=== PATIENT | female | born 1955 | race African-American/Black ===

== ENCOUNTER 2016-06-01 07:17 | Inpatient (IN) | payer OTHER ==
[~2016-06-01] VITALS: Ht 147.3 cm; Wt 184.0 kg
[~2016-06-01 07:17] MED LIST: CALCIUM CA1250 MG/5 PO; DUONEB 2.5-0.5 M3 ML AEROSOL; FUROSEMIDE20 MG PO; GLUCOPHAGE500 MG PO; HYDROCHLOROTHIA50 MG PO; K-DUR20 MEQ PO; LASIX10 MG PO; OMEPRAZOLE40 MG PO; PREDNISONE10 MG PO; PREDNISONE5 MG PO; SPIRIVA1 INHALATI IH; THEOCAP200 MG PO; THEOCHRON200 MG PO; TRANSDERM-SCO1 PATCH TD; VERAPAMIL HCL120 MG PO; VERAPAMIL HCL180 MG PO
[2016-06-01 08:51] LABS: HEMATOCRIT 50.5 % (36.0-46.0); MCH 27.7 PG (29.0-34.0); MCHC 29.3 G/DL (30.0-36.0); MCV 94.6 FL (83-99); RBC DIS.WIDTH-CV 16.3 % (11.8-14.6); RBC DIS.WIDTH-SD 53.5 % (39-53); RED BLOOD COUNT 5.34 M/uL (3.80-5.20); WHITE BLOOD COUNT 17.4 K/uL (4.1-10.2)
[2016-06-01 08:54] LABS: BASE EXCESS -5.6 mEq/L (-3 to +3); BICARBONATE 22.9 mEq/L (22-26); CARBOXY HGB 2.5 % (0-5); METHEMOGLOBIN 1.1 % (0-1.5); PO2 181 mm Hg (80-100)
[2016-06-01 08:55] LABS: COMMENTS - BLOOD GASES A+C+; DEVICE VENT; FI02 100 %; MECHANICAL RATE 20 resp/min; MODE AC/VC; PCO2 56 mm Hg (35-45); PEEP 8 CM/H20; SITE RR; TIDAL VOLUME 470 ML; TOTAL RESP RATE 20 resp/min; pH 7.22 (7.35-7.45)
[2016-06-01 08:58] LABS: CHLORIDE 101 mEq/L (99-109); SODIUM 143 mEq/L (136-147)
[2016-06-01 08:59] LABS: GLUCOSE 58 mg/dL (70-99)
[2016-06-01 09:01] LABS: ANION GAP 23 MEQ/L (2-14)
[2016-06-01 09:03] LABS: GFR ESTIMATE (CALCULATED) 17 mL/min/
[2016-06-01 09:04] LABS: UREA NITROGEN (BUN) 49 mg/dL (9-23)
[2016-06-01 09:05] LABS: TROP-I INTERPRETATION POSITIVE
[2016-06-01 09:06] LABS: TROPONIN-I 0.88 ng/mL (0.0-0.30)
[2016-06-01 10:06] LABS: PLATELET COUNT UNABLE TO REPORT K/uL (156-360)
[2016-06-01 11:31] VITALS: BP 95/51
[2016-06-01 13:00] VITALS: BP 77/39
[2016-06-01] MEDS ORDERED: THEOPHYLLINE400 MG PO (13:32)
[2016-06-01] MEDS ORDERED: VERAPAMIL HCL180 MG PO (13:33)
[2016-06-01] MEDS ORDERED: LASIX20 MG PO (13:33)
[2016-06-01 14:00] VITALS: BP 72/26
[2016-06-01 14:30] VITALS: BP 77/33
[2016-06-01 15:00] VITALS: BP 80/38
[2016-06-01 15:19] LABS: BASE EXCESS -1.5 mEq/L (-3 to +3); BICARBONATE 24.3 mEq/L (22-26); CARBOXY HGB 3.4 % (0-5); DEVICE 840; FI02 100 %; MECHANICAL RATE 20 resp/min; METHEMOGLOBIN 1.1 % (0-1.5); MODE AC; PCO2 44 mm Hg (35-45); PEEP 8 CM/H20; PO2 72 mm Hg (80-100); SITE ALINE; TIDAL VOLUME 470 ML; TOTAL RESP RATE 20 resp/min; pH 7.35 (7.35-7.45)
[2016-06-01 17:58] LABS: ANION GAP 16 MEQ/L (2-14); CHLORIDE 99 MEQ/L (99-109); SAMPLE HEMOLYSIS CHECK 0; SAMPLE ICTERIC CHECK 1; SAMPLE LIPEMIA CHECK 0; SODIUM 138 MEQ/L (136-147)
[2016-06-01 18:00] LABS: METH RESISTANT S AUREUS PCR POSITIVE (NEGATIVE)
[2016-06-01 18:01] LABS: PROBE CHECK PASS
[2016-06-01 18:03] LABS: GFR ESTIMATE (CALCULATED) 17 mL/min/; GLUCOSE 78 mg/dL (70-99); UREA NITROGEN (BUN) 53 mg/dL (9-23)
[2016-06-01 18:06] LABS: TROP-I INTERPRETATION POSITIVE
[2016-06-01 18:10] LABS: TROPONIN-I 1.35 ng/mL (0.0-0.30)
[2016-06-01 19:06] LABS: HEMATOCRIT 46.8 % (36.0-46.0); MCV 91.6 FL (83-99)
[2016-06-01 19:38] VITALS: BP 95/51
[2016-06-01 23:12] LABS: TROP-I INTERPRETATION POSITIVE
[2016-06-01 23:17] LABS: TROPONIN-I 1.65 ng/mL (0.0-0.30)
[2016-06-01 23:25] LABS: INFLUENZA A VIRAL ANTIGEN NEGATIVE; INFLUENZA B VIRAL ANTIGEN NEGATIVE
[2016-06-02] VITALS: BP 148/51
[2016-06-02 05:16] LABS: CHLORIDE 104 mEq/L (99-109)
[2016-06-02 05:17] LABS: POTASSIUM 5.6 mEq/L (3.7-5.4); SODIUM 144 mEq/L (136-147)
[2016-06-02 05:20] LABS: ANION GAP 19 MEQ/L (2-14)
[2016-06-02 05:22] LABS: GFR ESTIMATE (CALCULATED) 14 mL/min/
[2016-06-02 05:23] LABS: UREA NITROGEN (BUN) 61 mg/dL (9-23)
[2016-06-02 05:24] LABS: TROP-I INTERPRETATION POSITIVE
[2016-06-02 05:25] LABS: BASE EXCESS -2.7 mEq/L (-3 to +3); BICARBONATE 23.7 mEq/L (22-26); CARBOXY HGB 2.2 % (0-5); METHEMOGLOBIN 1.6 % (0-1.5); PCO2 46 mm Hg (35-45); PO2 82 mm Hg (80-100); pH 7.32 (7.35-7.45)
[2016-06-02 05:26] LABS: COMMENTS - BLOOD GASES C+; DEVICE PB840; FI02 60 %; MECHANICAL RATE 20 resp/min; MODE AC; SITE A-LINE
[2016-06-02 05:27] LABS: PEEP 10 CM/H20; TIDAL VOLUME 470 ML
[2016-06-02 05:30] LABS: GLUCOSE 111 mg/dL (70-99)
[2016-06-02 05:32] LABS: TROPONIN-I 2.24 ng/mL (0.0-0.30)
[2016-06-02 06:12] LABS: EOSINOPHIL (%) 0 % (0-5); HEMATOCRIT 46.6 % (36.0-46.0); IMMATURE GRANULOCYTE (%) 0.3 % (0.0-0.7); IMMATURE GRANULOCYTE COUNT 0.5 K/uL; MCH 27.8 PG (29.0-34.0); MCHC 30.9 G/DL (30.0-36.0); MONOCYTE COUNT 1.1 K/uL (0-0.8); NEUTROPHIL (%) 86.4 % (45-76); NEUTROPHIL COUNT 14.1 K/uL (1.8-6.4); PLAT.SUFFICIENCY DECREASED; RBC DIS.WIDTH-CV 16.1 % (11.8-14.6); RBC DIS.WIDTH-SD 52.1 % (39-53); RED BLOOD COUNT 5.18 M/uL (3.80-5.20); USER ID SLU; WHITE BLOOD COUNT 16.3 K/uL (4.1-10.2)
[2016-06-02 06:13] LABS: PLATELET COUNT 94 K/uL (156-360)
[2016-06-02 11:04] LABS: D-DIMER LATEX POSITIVE
[2016-06-02 11:06] LABS: FIBRINOGEN 174 MG/DL (160-450)
[2016-06-02 11:07] LABS: INTER. NORMALIZED RATIO 3.5; PTT 31.7 (25-32)
[2016-06-02 12:15] LABS: SCHISTOCYTES NONE SEEN
[2016-06-02 13:28] LABS: ANION GAP 16 MEQ/L (2-14); CHLORIDE 101 MEQ/L (99-109); GFR ESTIMATE (CALCULATED) 14 mL/min/; GLUCOSE 151 mg/dL (70-99); SAMPLE HEMOLYSIS CHECK 2; SAMPLE ICTERIC CHECK 1; SAMPLE LIPEMIA CHECK 0; SODIUM 140 MEQ/L (136-147); UREA NITROGEN (BUN) 70 mg/dL (9-23)
[2016-06-02 13:36] LABS: POTASSIUM 5.7 MEQ/L (3.7-5.4)
[2016-06-02 15:44] LABS: DIRECT BILIRUBIN 2.7 mg/dL (0.0-0.3); MAGNESIUM 2.2 mg/dl (1.3-2.7); TOTAL BILIRUBIN 5.1 MG/DL (0.0-1.0)
[2016-06-02 16:15] LABS: ALKALINE PHOSPHATASE 118 IU/L (3-129)
[2016-06-02 17:23] LABS: ADD MIUA? YES; BILIRUBIN NEGATIVE; BLOOD LARGE; COLOR YELLOW ((YELLOW)); GLUCOSE (STRIP) NEGATIVE; KETONES NEGATIVE; LEUKOCYTES TRACE; NITRITE NEGATIVE; PROTEIN (STRIP) 30; SPECIFIC GRAVITY 1.008 (1.000-1.030); UROBILINOGEN 0.2 MG/DL (0.2-1.0)
[2016-06-02 17:48] LABS: UR CREATININE CONCENTRATION 47.6 MG/DL
[2016-06-02 18:02] LABS: EPITHELIAL CELLS RARE /HPF; MUCUS TRACE /LPF; WHITE BLOOD CELLS 15-20 /HPF (0-5)
[2016-06-02 18:14] LABS: BACTERIA RARE /HPF; CRYSTALS PRESENT
[2016-06-02 20:00] VITALS: BP 147/57
[2016-06-03 06:36] LABS: EOSINOPHIL (%) 0 % (0-5); IMMATURE GRANULOCYTE (%) 0.2 % (0.0-0.7); LYMPHOCYTE COUNT 0.6 K/uL (1.0-2.8); MONOCYTE (%) 3.3 % (3-12); MONOCYTE COUNT 0.5 K/uL (0-0.8); NEUTROPHIL (%) 92.7 % (45-76); NRBC (%) 0.4 /100 WBC (0-0)
[2016-06-03 07:06] LABS: ANION GAP 14 MEQ/L (2-14); CHLORIDE 100 MEQ/L (99-109); GFR ESTIMATE (CALCULATED) 11 mL/min/; GLUCOSE 193 mg/dL (70-99); POTASSIUM 4.8 MEQ/L (3.7-5.4); SAMPLE HEMOLYSIS CHECK 0; SAMPLE ICTERIC CHECK 1; SAMPLE LIPEMIA CHECK 0; SODIUM 138 MEQ/L (136-147); UREA NITROGEN (BUN) 81 mg/dL (9-23)
[2016-06-03 07:10] LABS: HEMATOCRIT 41.8 % (36.0-46.0); MCH 28.2 PG (29.0-34.0); MCHC 31.8 G/DL (30.0-36.0); MCV 88.6 FL (83-99); PLAT.SUFFICIENCY DECREASED; PLATELET COUNT 89 K/uL (156-360); RBC DIS.WIDTH-CV 15.8 % (11.8-14.6); RBC DIS.WIDTH-SD 50.6 % (39-53); RED BLOOD COUNT 4.72 M/uL (3.80-5.20); WHITE BLOOD COUNT 15.1 K/uL (4.1-10.2)
[2016-06-03 08:30] LABS: ALKALINE PHOSPHATASE 110 IU/L (3-129); DIRECT BILIRUBIN 3.9 mg/dL (0.0-0.3); TOTAL BILIRUBIN 5.3 MG/DL (0.0-1.0)
[2016-06-03 09:34] LABS: INTER. NORMALIZED RATIO 2.4
[2016-06-03 09:45] LABS: PROTHROMBIN TIME 24.8 (9.2-11.2)
[2016-06-03 18:11] LABS: POINT-OF-CARE METER ID UU13113748
[2016-06-03 18:26] LABS: EOSINOPHIL (%) 0 % (0-5); IMMATURE GRANULOCYTE (%) 0.2 % (0.0-0.7); LYMPHOCYTE COUNT 0.5 K/uL (1.0-2.8); MONOCYTE (%) 3.3 % (3-12); MONOCYTE COUNT 0.5 K/uL (0-0.8); NEUTROPHIL (%) 92.9 % (45-76); NEUTROPHIL COUNT 13.4 K/uL (1.8-6.4); NRBC (%) 0.4 /100 WBC (0-0)
[2016-06-03 18:50] LABS: ANION GAP 14 MEQ/L (2-14); CHLORIDE 102 MEQ/L (99-109); GFR ESTIMATE (CALCULATED) 11 mL/min/; GLUCOSE 223 mg/dL (70-99); MAGNESIUM 2.1 mg/dl (1.3-2.7); POTASSIUM 4.8 MEQ/L (3.7-5.4); SAMPLE HEMOLYSIS CHECK 0; SAMPLE ICTERIC CHECK 1; SAMPLE LIPEMIA CHECK 0; SODIUM 139 MEQ/L (136-147); UREA NITROGEN (BUN) 93 mg/dL (9-23)
[2016-06-03 19:09] LABS: HEMATOCRIT 37.2 % (36.0-46.0); MCH 28.1 PG (29.0-34.0); MCV 87.9 FL (83-99); PLAT.SUFFICIENCY DECREASED; PLATELET COUNT 65 K/uL (156-360); RBC DIS.WIDTH-CV 15.7 % (11.8-14.6); RBC DIS.WIDTH-SD 50.1 % (39-53); RED BLOOD COUNT 4.23 M/uL (3.80-5.20); USER ID WCD; WHITE BLOOD COUNT 14.4 K/uL (4.1-10.2)
[2016-06-04 01:14] LABS: EOSINOPHIL (%) 0 % (0-5); IMMATURE GRANULOCYTE (%) 0.3 % (0.0-0.7); IMMATURE GRANULOCYTE COUNT 0.4 K/uL; LYMPHOCYTE COUNT 0.4 K/uL (1.0-2.8); MONOCYTE (%) 3.3 % (3-12); MONOCYTE COUNT 0.5 K/uL (0-0.8); NEUTROPHIL (%) 93.7 % (45-76); NEUTROPHIL COUNT 14.1 K/uL (1.8-6.4)
[2016-06-04 01:23] LABS: CHLORIDE 102 mEq/L (99-109); SODIUM 138 mEq/L (136-147)
[2016-06-04 01:25] LABS: GLUCOSE 219 mg/dL (70-99)
[2016-06-04 01:26] LABS: ANION GAP 16 MEQ/L (2-14)
[2016-06-04 01:28] LABS: PROTHROMBIN TIME 20.6 (9.2-11.2); PTT 33.8 (25-32)
[2016-06-04 01:29] LABS: GFR ESTIMATE (CALCULATED) 10 mL/min/
[2016-06-04 01:30] LABS: UREA NITROGEN (BUN) 97 mg/dL (9-23)
[2016-06-04 02:07] LABS: HEMATOCRIT 36.5 % (36.0-46.0); MCH 27.6 PG (29.0-34.0); MCHC 31.8 G/DL (30.0-36.0); MCV 86.7 FL (83-99); RBC DIS.WIDTH-CV 15.7 % (11.8-14.6); RED BLOOD COUNT 4.21 M/uL (3.80-5.20); WHITE BLOOD COUNT 15.1 K/uL (4.1-10.2)
[2016-06-04 02:11] LABS: HEMATOLOGY COMMENT 1 REV; PLAT.SUFFICIENCY DECREASED
[2016-06-04 02:12] LABS: PLATELET COUNT 77 K/uL (156-360)
[2016-06-04 05:15] LABS: POINT-OF-CARE METER ID UU13113748
[2016-06-04 05:16] LABS: BICARBONATE 22.7 mEq/L (22-26); METHEMOGLOBIN 1.4 % (0-1.5); PCO2 42 mm Hg (35-45); pH 7.34 (7.35-7.45)
[2016-06-04 05:18] LABS: COMMENTS - BLOOD GASES C+; DEVICE PB840; FI02 50 %; MECHANICAL RATE 20 resp/min; MODE AC; PO2 99 mm Hg (80-100); SITE A-LINE
[2016-06-04 05:19] LABS: PEEP 10 CM/H20; TIDAL VOLUME 470 ML; TOTAL RESP RATE 20 resp/min
[2016-06-04 05:57] LABS: EOSINOPHIL (%) 0 % (0-5); IMMATURE GRANULOCYTE (%) 0.3 % (0.0-0.7); IMMATURE GRANULOCYTE COUNT 0.1 K/uL; LYMPHOCYTE COUNT 0.3 K/uL (1.0-2.8); MONOCYTE (%) 2.9 % (3-12); MONOCYTE COUNT 0.4 K/uL (0-0.8); NEUTROPHIL (%) 94.5 % (45-76); NEUTROPHIL COUNT 13.5 K/uL (1.8-6.4); NRBC (%) 0.4 /100 WBC (0-0)
[2016-06-04 06:35] LABS: ANION GAP 17 MEQ/L (2-14); CHLORIDE 99 MEQ/L (99-109); GFR ESTIMATE (CALCULATED) 10 mL/min/; GLUCOSE 221 mg/dL (70-99); MAGNESIUM 2.1 mg/dl (1.3-2.7); POTASSIUM 4.7 MEQ/L (3.7-5.4); SAMPLE HEMOLYSIS CHECK 0; SAMPLE ICTERIC CHECK 1; SAMPLE LIPEMIA CHECK 0; SODIUM 139 MEQ/L (136-147); UREA NITROGEN (BUN) 96 mg/dL (9-23)
[2016-06-04 06:39] LABS: PROTHROMBIN TIME 20.6 (9.2-11.2)
[2016-06-04 06:42] LABS: HEMATOCRIT 35.8 % (36.0-46.0); MCH 28.5 PG (29.0-34.0); MCHC 32.7 G/DL (30.0-36.0); MCV 87.1 FL (83-99); RBC DIS.WIDTH-CV 15.6 % (11.8-14.6); RBC DIS.WIDTH-SD 48.9 % (39-53); RED BLOOD COUNT 4.11 M/uL (3.80-5.20); WHITE BLOOD COUNT 14.3 K/uL (4.1-10.2)
[2016-06-04 07:06] LABS: PLAT.SUFFICIENCY DECREASED; PLATELET COUNT 60 K/uL (156-360); USER ID STC
[2016-06-04 12:24] LABS: POINT-OF-CARE METER ID UU13113748
[2016-06-04 13:22] LABS: NRBC (%) 0.5 /100 WBC (0-0)
[2016-06-04 13:49] LABS: ANION GAP 14 MEQ/L (2-14); CHLORIDE 101 MEQ/L (99-109); GFR ESTIMATE (CALCULATED) 12 mL/min/; GLUCOSE 185 mg/dL (70-99); MAGNESIUM 2.1 mg/dl (1.3-2.7); POTASSIUM 4.8 MEQ/L (3.7-5.4); SAMPLE HEMOLYSIS CHECK 0; SAMPLE ICTERIC CHECK 1; SAMPLE LIPEMIA CHECK 0; SODIUM 138 MEQ/L (136-147); UREA NITROGEN (BUN) 85 mg/dL (9-23)
[2016-06-04 14:13] LABS: EOSINOPHIL (%) 0 % (0-5); HEMATOCRIT 35.9 % (36.0-46.0); IMMATURE GRANULOCYTE (%) 0.3 % (0.0-0.7); IMMATURE GRANULOCYTE COUNT 0.1 K/uL; LYMPHOCYTE COUNT 0.4 K/uL (1.0-2.8); MCH 27.5 PG (29.0-34.0); MCHC 31.8 G/DL (30.0-36.0); MCV 86.5 FL (83-99); MONOCYTE (%) 1.6 % (3-12); MONOCYTE COUNT 0.2 K/uL (0-0.8); NEUTROPHIL (%) 95.4 % (45-76); NEUTROPHIL COUNT 13.9 K/uL (1.8-6.4); RBC DIS.WIDTH-CV 15.8 % (11.8-14.6); RBC DIS.WIDTH-SD 49.4 % (39-53); RED BLOOD COUNT 4.15 M/uL (3.80-5.20); WHITE BLOOD COUNT 14.6 K/uL (4.1-10.2)
[2016-06-04 14:18] LABS: PLAT.SUFFICIENCY DECREASED; PLATELET COUNT 64 K/uL (156-360); USER ID STC
[2016-06-04 17:23] LABS: POINT-OF-CARE METER ID UU13113748
[2016-06-04 18:39] LABS: ANION GAP 10 MEQ/L (2-14); CHLORIDE 101 MEQ/L (99-109); GFR ESTIMATE (CALCULATED) 14 mL/min/; GLUCOSE 235 mg/dL (70-99); POTASSIUM 4.8 MEQ/L (3.7-5.4); SAMPLE HEMOLYSIS CHECK 0; SAMPLE ICTERIC CHECK 1; SAMPLE LIPEMIA CHECK 0; SODIUM 136 MEQ/L (136-147); UREA NITROGEN (BUN) 74 mg/dL (9-23)
[2016-06-05 00:29] LABS: POINT-OF-CARE METER ID UU13113748
[2016-06-05 01:22] LABS: CHLORIDE 103 mEq/L (99-109); POTASSIUM 4.9 mEq/L (3.7-5.4); SODIUM 138 mEq/L (136-147)
[2016-06-05 01:25] LABS: GLUCOSE 205 mg/dL (70-99)
[2016-06-05 01:26] LABS: ANION GAP 13 MEQ/L (2-14)
[2016-06-05 01:28] LABS: GFR ESTIMATE (CALCULATED) 16 mL/min/
[2016-06-05 01:29] LABS: UREA NITROGEN (BUN) 61 mg/dL (9-23)
[2016-06-05 02:10] LABS: HEMATOLOGY COMMENT 1 REV; PLAT.SUFFICIENCY DECREASED; USER ID SLU
[2016-06-05 02:12] LABS: EOSINOPHIL (%) 0 % (0-5); IMMATURE GRANULOCYTE (%) 0.4 % (0.0-0.7); IMMATURE GRANULOCYTE COUNT 0.6 K/uL; LYMPHOCYTE COUNT 0.3 K/uL (1.0-2.8); MONOCYTE COUNT 0.7 K/uL (0-0.8); NEUTROPHIL (%) 93.6 % (45-76); NEUTROPHIL COUNT 15.3 K/uL (1.8-6.4)
[2016-06-05 02:13] LABS: RED BLOOD COUNT 4.27 M/uL (3.80-5.20); WHITE BLOOD COUNT 15.6 K/uL (4.1-10.2)
[2016-06-05 02:14] LABS: HEMATOCRIT 36.6 % (36.0-46.0); MCH 28.3 PG (29.0-34.0); MCHC 32.1 G/DL (30.0-36.0); MCV 85.7 FL (83-99); PLATELET COUNT 68 K/uL (156-360); RBC DIS.WIDTH-CV 15.6 % (11.8-14.6); RBC DIS.WIDTH-SD 46.8 % (39-53)
[2016-06-05 06:20] LABS: ANION GAP 14 MEQ/L (2-14); CHLORIDE 100 MEQ/L (99-109); GFR ESTIMATE (CALCULATED) 21 mL/min/; GLUCOSE 201 mg/dL (70-99); POTASSIUM 4.8 MEQ/L (3.7-5.4); SAMPLE HEMOLYSIS CHECK 0; SAMPLE ICTERIC CHECK 2; SAMPLE LIPEMIA CHECK 0; SODIUM 135 MEQ/L (136-147); UREA NITROGEN (BUN) 50 mg/dL (9-23)
[2016-06-05 07:50] LABS: EOSINOPHIL (%) 0 % (0-5); IMMATURE GRANULOCYTE (%) 0.7 % (0.0-0.7); IMMATURE GRANULOCYTE COUNT 0.1 K/uL; LYMPHOCYTE COUNT 0.5 K/uL (1.0-2.8); MONOCYTE (%) 2.3 % (3-12); MONOCYTE COUNT 0.4 K/uL (0-0.8); NEUTROPHIL COUNT 14.7 K/uL (1.8-6.4); NRBC (%) 1.1 /100 WBC (0-0)
[2016-06-05 08:10] LABS: MAGNESIUM 2.2 mg/dl (1.3-2.7)
[2016-06-05 08:21] LABS: BASE EXCESS -2.6 mEq/L (-3 to +3); BICARBONATE 23.2 mEq/L (22-26); CARBOXY HGB 2.3 % (0-5); METHEMOGLOBIN 1.7 % (0-1.5); PCO2 43 mm Hg (35-45); PO2 204 mm Hg (80-100); pH 7.34 (7.35-7.45)
[2016-06-05 08:22] LABS: COMMENTS - BLOOD GASES C+; DEVICE VENT; FI02 100 %; MECHANICAL RATE 20 resp/min; MODE AC; PEEP 8 CM/H20; SITE ALINE; TIDAL VOLUME 470 ML; TOTAL RESP RATE 20 resp/min
[2016-06-05 08:23] LABS: MCH 27.7 PG (29.0-34.0); MCHC 32.2 G/DL (30.0-36.0); RBC DIS.WIDTH-SD 48.9 % (39-53); WHITE BLOOD COUNT 15.6 K/uL (4.1-10.2)
[2016-06-05 08:27] LABS: HEMATOLOGY COMMENT 1 SMEAR COMPATIBLE; PLAT.SUFFICIENCY DECREASED; PLATELET COUNT 54 K/uL (156-360); USER ID STC
[2016-06-05 10:38] LABS: BICARBONATE 22.2 mEq/L (22-26); CARBOXY HGB 2.3 % (0-5); METHEMOGLOBIN 1.8 % (0-1.5); PCO2 44 mm Hg (35-45); pH 7.31 (7.35-7.45)
[2016-06-05 10:39] LABS: COMMENTS - BLOOD GASES C+; DEVICE VENT; FI02 60 %; MECHANICAL RATE 20 resp/min; MODE AC; PEEP 8 CM/H20; PO2 83 mm Hg (80-100); SITE ALINE; TIDAL VOLUME 470 ML; TOTAL RESP RATE 20 resp/min
[2016-06-05 12:13] LABS: POINT-OF-CARE METER ID UU13113803
[2016-06-05 12:14] LABS: EOSINOPHIL (%) 0 % (0-5); IMMATURE GRANULOCYTE (%) 0.9 % (0.0-0.7); IMMATURE GRANULOCYTE COUNT 0.1 K/uL; LYMPHOCYTE COUNT 0.4 K/uL (1.0-2.8); MONOCYTE (%) 3.1 % (3-12); MONOCYTE COUNT 0.5 K/uL (0-0.8); NEUTROPHIL (%) 93.3 % (45-76); NEUTROPHIL COUNT 14.3 K/uL (1.8-6.4); NRBC (%) 0.9 /100 WBC (0-0)
[2016-06-05 12:40] LABS: HEMATOCRIT 35.2 % (36.0-46.0); MCH 28.3 PG (29.0-34.0); MCV 85.9 FL (83-99); RBC DIS.WIDTH-CV 15.9 % (11.8-14.6); RBC DIS.WIDTH-SD 48.2 % (39-53); WHITE BLOOD COUNT 15.3 K/uL (4.1-10.2)
[2016-06-05 12:43] LABS: ANION GAP 10 MEQ/L (2-14); CHLORIDE 101 MEQ/L (99-109); GFR ESTIMATE (CALCULATED) 24 mL/min/; GLUCOSE 226 mg/dL (70-99); MAGNESIUM 2.3 mg/dl (1.3-2.7); POTASSIUM 5.2 MEQ/L (3.7-5.4); SAMPLE HEMOLYSIS CHECK 1; SAMPLE ICTERIC CHECK 2; SAMPLE LIPEMIA CHECK 0; SODIUM 134 MEQ/L (136-147); UREA NITROGEN (BUN) 45 mg/dL (9-23)
[2016-06-05 13:29] LABS: PLAT.SUFFICIENCY DECREASED; PLATELET COUNT 66 K/uL (156-360); USER ID TLW
[2016-06-05 18:02] LABS: POINT-OF-CARE METER ID UU13113803
[2016-06-05 18:41] LABS: ANION GAP 11 MEQ/L (2-14); CHLORIDE 100 MEQ/L (99-109); GFR ESTIMATE (CALCULATED) 22 mL/min/; GLUCOSE 209 mg/dL (70-99); POTASSIUM 5.3 MEQ/L (3.7-5.4); SAMPLE HEMOLYSIS CHECK 1; SAMPLE ICTERIC CHECK 2; SAMPLE LIPEMIA CHECK 0; SODIUM 132 MEQ/L (136-147); UREA NITROGEN (BUN) 45 mg/dL (9-23)
[2016-06-06 00:28] LABS: POINT-OF-CARE METER ID UU13113803
[2016-06-06 05:41] LABS: POINT-OF-CARE METER ID UU13113803
[2016-06-06 06:24] LABS: BASE EXCESS -1.3 mEq/L (-3 to +3); BICARBONATE 23.7 mEq/L (22-26); CARBOXY HGB 1.8 % (0-5); COMMENTS - BLOOD GASES C+; DEVICE 840; FI02 40 %; MECHANICAL RATE 20 resp/min; METHEMOGLOBIN 1.6 % (0-1.5); MODE AC; PCO2 40 mm Hg (35-45); PEEP 6 CM/H20; PO2 72 mm Hg (80-100); SITE RR ALINE; TIDAL VOLUME 470 ML; TOTAL RESP RATE 24 resp/min; pH 7.38 (7.35-7.45)
[2016-06-06 06:30] LABS: TRIGLYCERIDES 126 MG/DL (Normal: <150)
[2016-06-06 06:30] LABS: HEMATOCRIT 31.6 % (36.0-46.0); MCH 27.6 PG (29.0-34.0); MCHC 32.3 G/DL (30.0-36.0); MCV 85.6 FL (83-99); RBC DIS.WIDTH-CV 15.9 % (11.8-14.6); RBC DIS.WIDTH-SD 48.2 % (39-53); RED BLOOD COUNT 3.69 M/uL (3.80-5.20); WHITE BLOOD COUNT 12.7 K/uL (4.1-10.2)
[2016-06-06 07:13] LABS: HEMATOLOGY COMMENT 1 SMEAR COMPATIBLE; PLATELET COUNT 62 K/uL (156-360)
[2016-06-06 08:34] LABS: ANION GAP 10 MEQ/L (2-14); CHLORIDE 101 MEQ/L (99-109); MAGNESIUM 2.3 mg/dl (1.3-2.7); POTASSIUM 5.5 MEQ/L (3.7-5.4); SAMPLE HEMOLYSIS CHECK 0; SAMPLE ICTERIC CHECK 2; SAMPLE LIPEMIA CHECK 0; SODIUM 134 MEQ/L (136-147)
[2016-06-06 08:40] LABS: GFR ESTIMATE (CALCULATED) 17 mL/min/; GLUCOSE 222 mg/dL (70-99); UREA NITROGEN (BUN) 63 mg/dL (9-23)
[2016-06-06 09:45] VITALS: BP 74/34
[2016-06-06 12:19] LABS: NRBC (%) 1.1 /100 WBC (0-0)
[2016-06-06 12:45] LABS: POINT-OF-CARE METER ID UU13113803
[2016-06-06 13:19] LABS: EOSINOPHIL (%) 0 % (0-5); HEMATOCRIT 31.7 % (36.0-46.0); IMMATURE GRANULOCYTE (%) 2.2 % (0.0-0.7); IMMATURE GRANULOCYTE COUNT 0.3 K/uL; LYMPHOCYTE COUNT 0.4 K/uL (1.0-2.8); MCH 26.9 PG (29.0-34.0); MCHC 31.5 G/DL (30.0-36.0); MCV 85.2 FL (83-99); MONOCYTE COUNT 0.6 K/uL (0-0.8); NEUTROPHIL (%) 89.1 % (45-76); RBC DIS.WIDTH-CV 16.1 % (11.8-14.6); RBC DIS.WIDTH-SD 48.6 % (39-53); RED BLOOD COUNT 3.72 M/uL (3.80-5.20); WHITE BLOOD COUNT 12.3 K/uL (4.1-10.2)
[2016-06-06 13:35] LABS: HEMATOLOGY COMMENT 1 SMEAR COMPATIBLE; PLAT.SUFFICIENCY DECREASED; PLATELET COUNT 53 K/uL (156-360); USER ID CL
[2016-06-06 13:51] LABS: ANION GAP 11 MEQ/L (2-14); CHLORIDE 100 MEQ/L (99-109); GFR ESTIMATE (CALCULATED) 17 mL/min/; GLUCOSE 244 mg/dL (70-99); MAGNESIUM 2.3 mg/dl (1.3-2.7); POTASSIUM 5.4 MEQ/L (3.7-5.4); SAMPLE HEMOLYSIS CHECK 0; SAMPLE ICTERIC CHECK 2; SAMPLE LIPEMIA CHECK 0; SODIUM 132 MEQ/L (136-147); UREA NITROGEN (BUN) 68 mg/dL (9-23)
[2016-06-06 15:47] LABS: ALKALINE PHOSPHATASE 99 IU/L (3-129); DIRECT BILIRUBIN 5.6 mg/dL (0.0-0.3)
[2016-06-06 17:39] LABS: POINT-OF-CARE METER ID UU13113803
[2016-06-07 00:14] LABS: POINT-OF-CARE METER ID UU13113803
[2016-06-07 05:20] LABS: POINT-OF-CARE METER ID UU13113731
[2016-06-07 06:37] LABS: ANION GAP 12 MEQ/L (2-14); CHLORIDE 98 MEQ/L (99-109); GFR ESTIMATE (CALCULATED) 14 mL/min/; GLUCOSE 230 mg/dL (70-99); POTASSIUM 5.8 MEQ/L (3.7-5.4); SAMPLE HEMOLYSIS CHECK 0; SAMPLE ICTERIC CHECK 2; SAMPLE LIPEMIA CHECK 0; SODIUM 132 MEQ/L (136-147); UREA NITROGEN (BUN) 85 mg/dL (9-23)
[2016-06-07 10:18] LABS: AHBS INDEX 0.11; HBSG INDEX 0.25; HEPATITIS B SURFACE ANTIBODY Nonreactive
[2016-06-07 13:06] LABS: EOSINOPHIL (%) 0 % (0-5); IMMATURE GRANULOCYTE (%) 4.6 % (0.0-0.7); IMMATURE GRANULOCYTE COUNT 0.8 K/uL; LYMPHOCYTE COUNT 0.4 K/uL (1.0-2.8); MONOCYTE (%) 7.5 % (3-12); MONOCYTE COUNT 1.3 K/uL (0-0.8); NEUTROPHIL (%) 85.7 % (45-76); NEUTROPHIL COUNT 14.5 K/uL (1.8-6.4)
[2016-06-07 15:48] LABS: HEMATOCRIT 32.7 % (36.0-46.0); MCH 27.9 PG (29.0-34.0); MCHC 32.7 G/DL (30.0-36.0); MCV 85.4 FL (83-99); RBC DIS.WIDTH-CV 16.8 % (11.8-14.6); RBC DIS.WIDTH-SD 49.6 % (39-53); RED BLOOD COUNT 3.83 M/uL (3.80-5.20)
[2016-06-07 16:19] LABS: HEMATOLOGY COMMENT 1 SMEAR COMPATIBLE; PLAT.SUFFICIENCY DECREASED; PLATELET COUNT 64 K/uL (156-360)
[2016-06-07 16:20] LABS: WHITE BLOOD COUNT 16.9 K/uL (4.1-10.2)
[2016-06-07 17:48] LABS: ANION GAP 12 MEQ/L (2-14); CHLORIDE 98 MEQ/L (99-109); GFR ESTIMATE (CALCULATED) 17 mL/min/; GLUCOSE 184 mg/dL (70-99); POTASSIUM 5.1 MEQ/L (3.7-5.4); SAMPLE HEMOLYSIS CHECK 0; SAMPLE ICTERIC CHECK 2; SAMPLE LIPEMIA CHECK 0; SODIUM 133 MEQ/L (136-147); UREA NITROGEN (BUN) 60 mg/dL (9-23)
[2016-06-07 18:16] LABS: POINT-OF-CARE METER ID UU13113731
[2016-06-08 00:54] LABS: POINT-OF-CARE METER ID UU13113731
[2016-06-08 06:22] LABS: POINT-OF-CARE METER ID UU13113748
[2016-06-08 09:17] LABS: NRBC (%) 0.6 /100 WBC (0-0)
[2016-06-08 09:44] LABS: ANION GAP 13 MEQ/L (2-14); CHLORIDE 98 MEQ/L (99-109); GFR ESTIMATE (CALCULATED) 14 mL/min/; GLUCOSE 200 mg/dL (70-99); MAGNESIUM 2.4 mg/dl (1.3-2.7); POTASSIUM 5.4 MEQ/L (3.7-5.4); SAMPLE HEMOLYSIS CHECK 0; SAMPLE ICTERIC CHECK 2; SAMPLE LIPEMIA CHECK 0; SODIUM 133 MEQ/L (136-147); UREA NITROGEN (BUN) 81 mg/dL (9-23)
[2016-06-08 09:53] LABS: EOSINOPHIL (%) 0 % (0-5); HEMATOCRIT 32.2 % (36.0-46.0); HEMATOLOGY COMMENT 1 SMEAR COMPATIBLE; IMMATURE GRANULOCYTE (%) 3.4 % (0.0-0.7); IMMATURE GRANULOCYTE COUNT 0.5 K/uL; MCH 26.7 PG (29.0-34.0); MCHC 31.1 G/DL (30.0-36.0); MCV 85.9 FL (83-99); MONOCYTE (%) 3.9 % (3-12); MONOCYTE COUNT 0.6 K/uL (0-0.8); NEUTROPHIL (%) 86.3 % (45-76); NEUTROPHIL COUNT 13.5 K/uL (1.8-6.4); PLAT.SUFFICIENCY DECREASED; PLATELET COUNT 76 K/uL (156-360); RBC DIS.WIDTH-CV 17.1 % (11.8-14.6); RED BLOOD COUNT 3.75 M/uL (3.80-5.20); USER ID STC; WHITE BLOOD COUNT 15.7 K/uL (4.1-10.2)
[2016-06-08 12:51] LABS: POINT-OF-CARE METER ID UU13113748
[2016-06-08 17:46] LABS: POINT-OF-CARE METER ID UU13113748
[2016-06-09 00:41] LABS: POINT-OF-CARE METER ID UU14162636
[2016-06-09 05:22] LABS: POINT-OF-CARE METER ID UU14162636
[2016-06-09 07:11] LABS: NRBC (%) 0.4 /100 WBC (0-0)
[2016-06-09 08:07] LABS: ANION GAP 17 MEQ/L (2-14); CHLORIDE 96 MEQ/L (99-109); GFR ESTIMATE (CALCULATED) 12 mL/min/; GLUCOSE 238 mg/dL (70-99); MAGNESIUM 2.6 mg/dl (1.3-2.7); SAMPLE HEMOLYSIS CHECK 2; SAMPLE ICTERIC CHECK 1; SAMPLE LIPEMIA CHECK 0; SODIUM 132 MEQ/L (136-147)
[2016-06-09 08:08] LABS: POTASSIUM ND MEQ/L (3.7-5.4); UREA NITROGEN (BUN) 103 mg/dL (9-23)
[2016-06-09 09:22] LABS: POTASSIUM 5.8 MEQ/L (3.7-5.4)
[2016-06-09 09:29] LABS: DELETE MACHINE DIFF? YES
[2016-06-09 09:30] LABS: ANISOCYTOSIS 2+; HEMATOCRIT 31.1 % (36.0-46.0); HYPOCHROMASIA 2+; MACROCYTES 2+; MCHC 31.5 G/DL (30.0-36.0); MCV 85.7 FL (83-99); POLYCHROMASIA OCC; RBC DIS.WIDTH-CV 17.7 % (11.8-14.6); RBC DIS.WIDTH-SD 51.2 % (39-53); RED BLOOD COUNT 3.63 M/uL (3.80-5.20); SPHEROCYTES OCC; TARGET CELLS OCC; TEAR DROP CELLS OCC; USER ID TLW; WHITE BLOOD COUNT 16.2 K/uL (4.1-10.2)
[2016-06-09 09:32] LABS: PLATELET COUNT UNABLE TO REPORT K/uL (156-360)
[2016-06-09 10:20] LABS: BASE EXCESS -4.9 mEq/L (-3 to +3); BICARBONATE 20.6 mEq/L (22-26); CARBOXY HGB 2.4 % (0-5); METHEMOGLOBIN 1.7 % (0-1.5); PCO2 39 mm Hg (35-45); PO2 73 mm Hg (80-100); pH 7.33 (7.35-7.45)
[2016-06-09 10:21] LABS: COMMENTS - BLOOD GASES C+; DEVICE 840; FI02 40 %; MODE SPONT; PRES. SUPPORT 20 CM/H2O; SITE ALINE; TOTAL RESP RATE 28 resp/min
[2016-06-09 10:22] LABS: CONTINUOUS POS AIRWAY PRESSURE 6 cm H2O
[2016-06-09 12:18] LABS: POINT-OF-CARE METER ID UU14162636; POINT-OF-CARE USER ID DROKMM72
[2016-06-09 17:39] LABS: POINT-OF-CARE METER ID UU14162636
[2016-06-10] VITALS (7 sets, daily range): BP systolic 119–158; BP diastolic 54–73
[2016-06-10 00:53] LABS: POINT-OF-CARE METER ID UU13113748
[2016-06-10 07:02] LABS: POINT-OF-CARE METER ID UU14174217
[2016-06-10 07:41] LABS: ANION GAP 15 MEQ/L (2-14); CHLORIDE 95 MEQ/L (99-109); GFR ESTIMATE (CALCULATED) 13 mL/min/; GLUCOSE 201 mg/dL (70-99); MAGNESIUM 2.4 mg/dl (1.3-2.7); POTASSIUM 5.1 MEQ/L (3.7-5.4); SAMPLE HEMOLYSIS CHECK 0; SAMPLE ICTERIC CHECK 1; SAMPLE LIPEMIA CHECK 0; SODIUM 132 MEQ/L (136-147); UREA NITROGEN (BUN) 87 mg/dL (9-23)
[2016-06-10 07:50] LABS: HEMATOCRIT 29.8 % (36.0-46.0); MCH 27.6 PG (29.0-34.0); MCHC 32.2 G/DL (30.0-36.0); MCV 85.6 FL (83-99); PLATELET COUNT UNABLE TO REPORT K/uL (156-360); RBC DIS.WIDTH-CV 17.7 % (11.8-14.6); RBC DIS.WIDTH-SD 51.1 % (39-53); RED BLOOD COUNT 3.48 M/uL (3.80-5.20); WHITE BLOOD COUNT 19.9 K/uL (4.1-10.2)
[2016-06-10 11:17] LABS: POINT-OF-CARE METER ID UU14174217
[2016-06-10 17:33] LABS: POINT-OF-CARE METER ID UU14174217
[2016-06-10 23:57] LABS: POINT-OF-CARE METER ID UU14174217
[2016-06-11] VITALS (20 sets, daily range): BP systolic 127–160; BP diastolic 56–86
[2016-06-11 05:47] LABS: NRBC (%) 0.7 /100 WBC (0-0)
[2016-06-11 06:51] LABS: ANION GAP 16 MEQ/L (2-14); CHLORIDE 95 MEQ/L (99-109); GFR ESTIMATE (CALCULATED) 14 mL/min/; MAGNESIUM 2.5 mg/dl (1.3-2.7); POTASSIUM 4.8 MEQ/L (3.7-5.4); SAMPLE HEMOLYSIS CHECK 0; SAMPLE ICTERIC CHECK 1; SAMPLE LIPEMIA CHECK 0; SODIUM 135 MEQ/L (136-147); UREA NITROGEN (BUN) 83 mg/dL (9-23)
[2016-06-11 06:54] LABS: GLUCOSE 111 mg/dL (70-99)
[2016-06-11 08:50] LABS: ANISOCYTOSIS 1+; BAND NEUTROPHILS 5.5 % (0-8.0); EOSINOPHIL ABS CT 0.11; EOSINOPHILS 0.5 % (0-5.0); HEMATOCRIT 32.7 % (36.0-46.0); MACROCYTES 1+; MCH 28.1 PG (29.0-34.0); MCHC 32.1 G/DL (30.0-36.0); MCV 87.4 FL (83-99); PLAT.SUFFICIENCY DECREASED; PLATELET CLUMPS PRESENT; POLYCHROMASIA OCC; RBC DIS.WIDTH-CV 18.5 % (11.8-14.6); RBC DIS.WIDTH-SD 53.3 % (39-53); RED BLOOD COUNT 3.74 M/uL (3.80-5.20); SEG.NEUTROPHILS 73.5 % (46.0-76.0); USER ID STC; WHITE BLOOD COUNT 21.8 K/uL (4.1-10.2)
[2016-06-11 08:51] LABS: DELETE MACHINE DIFF? YES
[2016-06-11 11:29] LABS: POINT-OF-CARE METER ID UU14174217
[2016-06-11 18:13] LABS: POINT-OF-CARE METER ID UU14174217
[2016-06-11 23:38] LABS: POINT-OF-CARE METER ID UU14174217
[2016-06-12] VITALS (24 sets, daily range): BP systolic 118–157; BP diastolic 57–91
[2016-06-12 06:04] LABS: ANION GAP 14 MEQ/L (2-14); CHLORIDE 99 MEQ/L (99-109); GFR ESTIMATE (CALCULATED) 17 mL/min/; GLUCOSE 151 mg/dL (70-99); MAGNESIUM 2.4 mg/dl (1.3-2.7); POTASSIUM 4.8 MEQ/L (3.7-5.4); SAMPLE HEMOLYSIS CHECK 0; SAMPLE ICTERIC CHECK 1; SAMPLE LIPEMIA CHECK 0; SODIUM 136 MEQ/L (136-147); UREA NITROGEN (BUN) 75 mg/dL (9-23)
[2016-06-12 06:44] LABS: ABS NEUTROPHIL COUNT 19.18; ANISOCYTOSIS 2+; BASOPHIL COUNT 0.1 K/uL (0-0.1); EOSINOPHIL (%) 0.2 % (0-5); EOSINOPHIL ABS CT 0.24; EOSINOPHIL COUNT 0.1 K/uL (0-0.3); HEMATOCRIT 30.2 % (36.0-46.0); HYPOCHROMASIA RARE; IMMATURE GRANULOCYTE (%) 3.9 % (0.0-0.7); IMMATURE GRANULOCYTE COUNT 0.9 K/uL; LYMPHOCYTE COUNT 1.1 K/uL (1.0-2.8); MACROCYTES OCC; MCH 28.4 PG (29.0-34.0); MCHC 32.8 G/DL (30.0-36.0); MCV 86.8 FL (83-99); MONOCYTE (%) 7.4 % (3-12); MONOCYTE COUNT 1.8 K/uL (0-0.8); NEUTROPHIL (%) 83.3 % (45-76); NEUTROPHIL COUNT 19.7 K/uL (1.8-6.4); NRBC (%) 0.7 /100 WBC (0-0); PLATELET COUNT UNABLE TO REPORT K/uL (156-360); POLYCHROMASIA 1+; RBC DIS.WIDTH-CV 18.6 % (11.8-14.6); RBC DIS.WIDTH-SD 54.9 % (39-53); RED BLOOD COUNT 3.48 M/uL (3.80-5.20); USER ID SLU; WHITE BLOOD COUNT 23.7 K/uL (4.1-10.2)
[2016-06-12 14:06] LABS: POINT-OF-CARE METER ID UU14162636
[2016-06-12 18:11] LABS: POINT-OF-CARE METER ID UU13113731
[2016-06-13] VITALS (21 sets, daily range): BP systolic 128–168; BP diastolic 57–96
[2016-06-13 05:18] LABS: CHLORIDE 100 mEq/L (99-109); POTASSIUM 5.1 mEq/L (3.7-5.4); SODIUM 137 mEq/L (136-147)
[2016-06-13 05:19] LABS: MAGNESIUM 2.5 mg/dL (1.3-2.7)
[2016-06-13 05:22] LABS: ANION GAP 15 MEQ/L (2-14); GLUCOSE 107 mg/dL (70-99)
[2016-06-13 05:25] LABS: GFR ESTIMATE (CALCULATED) 12 mL/min/
[2016-06-13 05:30] LABS: UREA NITROGEN (BUN) 103 mg/dL (9-23)
[2016-06-13 05:43] LABS: CHLORIDE 101 mEq/L (99-109); POTASSIUM 5.1 mEq/L (3.7-5.4); SODIUM 138 mEq/L (136-147)
[2016-06-13 05:47] LABS: ANION GAP 15 MEQ/L (2-14)
[2016-06-13 05:50] LABS: GFR ESTIMATE (CALCULATED) 12 mL/min/; GLUCOSE 107 mg/dL (70-99)
[2016-06-13 05:51] LABS: UREA NITROGEN (BUN) 102 mg/dL (9-23)
[2016-06-13 06:14] LABS: HEMATOCRIT 30.6 % (36.0-46.0); MCHC 32.4 G/DL (30.0-36.0); MCV 86.4 FL (83-99); RBC DIS.WIDTH-CV 19.1 % (11.8-14.6); RED BLOOD COUNT 3.54 M/uL (3.80-5.20); WHITE BLOOD COUNT 20.1 K/uL (4.1-10.2)
[2016-06-13 07:30] LABS: DELETE MACHINE DIFF? YES
[2016-06-13 07:38] LABS: ANISOCYTOSIS 2+; ATYPICAL LYMPHOCYTE 1.5 %; BAND NEUTROPHILS 6.5 % (0-8.0); HYPOCHROMASIA 2+; MACROCYTES 1+; METAMYELOCYTES 1.5 %; MICROCYTOSIS OCC; NUCLEATED RBC'S 0.5; PLATELET COUNT UNABLE TO REPORT K/uL (156-360); POLYCHROMASIA OCC; SPHEROCYTES OCC; TARGET CELLS OCC; TEAR DROP CELLS OCC; USER ID TLW
[2016-06-13 12:01] LABS: POINT-OF-CARE METER ID UU13113731
[2016-06-13 18:26] LABS: POINT-OF-CARE METER ID UU14162636
[2016-06-14] VITALS (21 sets, daily range): BP systolic 110–185; BP diastolic 52–97
[2016-06-14 06:33] LABS: POINT-OF-CARE METER ID UU13113731
[2016-06-14 09:19] LABS: ABS NEUTROPHIL COUNT 10.66; ANISOCYTOSIS 2+; HEMATOCRIT 25.9 % (36.0-46.0); HYPOCHROMASIA 2+; MACROCYTES 1+; MCH 27.9 PG (29.0-34.0); MCHC 31.7 G/DL (30.0-36.0); MCV 88.1 FL (83-99); MICROCYTOSIS OCC; PLAT.SUFFICIENCY DECREASED; PLATELET COUNT 48 K/uL (156-360); POLYCHROMASIA RARE; RBC DIS.WIDTH-CV 20.1 % (11.8-14.6); RBC DIS.WIDTH-SD 61.4 % (39-53); RED BLOOD COUNT 2.94 M/uL (3.80-5.20); SCHISTOCYTES OCC; SPHEROCYTES OCC; TARGET CELLS OCC; TEAR DROP CELLS OCC; USER ID TLW; WHITE BLOOD COUNT 12.3 K/uL (4.1-10.2)
[2016-06-14 09:55] LABS: ANION GAP 14 MEQ/L (2-14); CHLORIDE 101 MEQ/L (99-109); GLUCOSE 78 mg/dL (70-99); MAGNESIUM 2.2 mg/dl (1.3-2.7); POTASSIUM 4.5 MEQ/L (3.7-5.4); SAMPLE HEMOLYSIS CHECK 0; SAMPLE ICTERIC CHECK 1; SAMPLE LIPEMIA CHECK 0; SODIUM 136 MEQ/L (136-147); UREA NITROGEN (BUN) 89 mg/dL (9-23)
[2016-06-14 09:59] LABS: GFR ESTIMATE (CALCULATED) 16 mL/min/
[2016-06-14 11:15] LABS: POINT-OF-CARE METER ID UU13113803
[2016-06-14 17:29] LABS: POINT-OF-CARE METER ID UU13113803
[2016-06-14 17:35] LABS: DELETE MACHINE DIFF? YES
[2016-06-14 23:44] LABS: POINT-OF-CARE METER ID UU13113731
[2016-06-15] VITALS (23 sets, daily range): BP systolic 98–155; BP diastolic 52–71
[2016-06-15 06:44] LABS: POINT-OF-CARE METER ID UU13113803
[2016-06-15 07:08] LABS: ANION GAP 17 MEQ/L (2-14); CHLORIDE 100 MEQ/L (99-109); DELETE MACHINE DIFF? YES; HEMATOCRIT 26.5 % (36.0-46.0); MCH 28.2 PG (29.0-34.0); MCHC 32.8 G/DL (30.0-36.0); POTASSIUM 3.9 MEQ/L (3.7-5.4); RBC DIS.WIDTH-CV 19.3 % (11.8-14.6); RBC DIS.WIDTH-SD 58.4 % (39-53); RED BLOOD COUNT 3.08 M/uL (3.80-5.20); SAMPLE HEMOLYSIS CHECK 0; SAMPLE ICTERIC CHECK 1; SAMPLE LIPEMIA CHECK 0; SODIUM 137 MEQ/L (136-147)
[2016-06-15 07:13] LABS: GFR ESTIMATE (CALCULATED) 13 mL/min/; GLUCOSE 123 mg/dL (70-99); MAGNESIUM 2.6 mg/dl (1.3-2.7); UREA NITROGEN (BUN) 108 mg/dL (9-23); VANCOMYCIN, TROUGH 16.4 MCG/ML (10-20)
[2016-06-15 07:27] LABS: ANISOCYTOSIS 1+; HYPOCHROMASIA 2+; MACROCYTES 1+; MICROCYTOSIS RARE; PLAT.SUFFICIENCY DECREASED; SPHEROCYTES OCC; USER ID STC
[2016-06-15 07:32] LABS: PLATELET COUNT 78 K/uL (156-360)
[2016-06-15 12:42] LABS: POINT-OF-CARE METER ID UU13113803
[2016-06-15 18:45] LABS: POINT-OF-CARE METER ID UU13113803
[2016-06-15 23:32] LABS: POINT-OF-CARE METER ID UU13113803
[2016-06-16] VITALS (15 sets, daily range): BP systolic 93–137; BP diastolic 42–71
[2016-06-16 05:13] LABS: POINT-OF-CARE USER ID ENVSME70
[2016-06-16 05:55] LABS: ANION GAP 12 MEQ/L (2-14); CHLORIDE 98 MEQ/L (99-109); GLUCOSE 120 mg/dL (70-99); POTASSIUM 3.5 MEQ/L (3.7-5.4); SAMPLE HEMOLYSIS CHECK 0; SAMPLE ICTERIC CHECK 1; SAMPLE LIPEMIA CHECK 0; SODIUM 136 MEQ/L (136-147); UREA NITROGEN (BUN) 81 mg/dL (9-23)
[2016-06-16 05:57] LABS: GFR ESTIMATE (CALCULATED) 17 mL/min/; MAGNESIUM 2.1 mg/dl (1.3-2.7)
[2016-06-16 06:22] LABS: EOSINOPHIL (%) 0.4 % (0-5); HEMATOCRIT 23.7 % (36.0-46.0); IMMATURE GRANULOCYTE (%) 0.9 % (0.0-0.7); IMMATURE GRANULOCYTE COUNT 0.1 K/uL; LYMPHOCYTE COUNT 1.1 K/uL (1.0-2.8); MCH 26.8 PG (29.0-34.0); MCHC 31.2 G/DL (30.0-36.0); MCV 85.9 FL (83-99); MONOCYTE (%) 8.7 % (3-12); MONOCYTE COUNT 0.9 K/uL (0-0.8); NEUTROPHIL (%) 79.7 % (45-76); NEUTROPHIL COUNT 8.3 K/uL (1.8-6.4); RBC DIS.WIDTH-CV 19.2 % (11.8-14.6); RBC DIS.WIDTH-SD 58.5 % (39-53); RED BLOOD COUNT 2.76 M/uL (3.80-5.20); WHITE BLOOD COUNT 10.3 K/uL (4.1-10.2)
[2016-06-16 06:27] LABS: C DIFF TOXIN NEGATIVE (NEGATIVE)
[2016-06-16 06:29] LABS: PROBE CHECK PASS; SPECIMEN PROCESSING CONTROL PASS
[2016-06-16 06:39] LABS: PLAT.SUFFICIENCY DECREASED; PLATELET COUNT 48 K/uL (156-360); USER ID SLU
[2016-06-17] VITALS (14 sets, daily range): BP systolic 63–112; BP diastolic 34–62
[2016-06-17 05:35] LABS: POINT-OF-CARE METER ID UU13113748
[2016-06-17 06:19] LABS: EOSINOPHIL (%) 0.2 % (0-5); IMMATURE GRANULOCYTE (%) 1.2 % (0.0-0.7); IMMATURE GRANULOCYTE COUNT 0.2 K/uL; LYMPHOCYTE COUNT 1.2 K/uL (1.0-2.8); MONOCYTE (%) 7.2 % (3-12); MONOCYTE COUNT 0.9 K/uL (0-0.8); NEUTROPHIL (%) 81.7 % (45-76); NEUTROPHIL COUNT 10.6 K/uL (1.8-6.4)
[2016-06-17 06:28] LABS: HEMATOCRIT 22.5 % (36.0-46.0); MCH 27.3 PG (29.0-34.0); MCHC 31.1 G/DL (30.0-36.0); MCV 87.9 FL (83-99); RBC DIS.WIDTH-CV 19.3 % (11.8-14.6); RBC DIS.WIDTH-SD 60.8 % (39-53); RED BLOOD COUNT 2.56 M/uL (3.80-5.20)
[2016-06-17 06:40] LABS: ANION GAP 13 MEQ/L (2-14); CHLORIDE 98 MEQ/L (99-109); MAGNESIUM 2.2 mg/dl (1.3-2.7); SAMPLE HEMOLYSIS CHECK 0; SAMPLE ICTERIC CHECK 1; SAMPLE LIPEMIA CHECK 0; SODIUM 135 MEQ/L (136-147); UREA NITROGEN (BUN) 100 mg/dL (9-23)
[2016-06-17 06:42] LABS: GLUCOSE 82 mg/dL (70-99)
[2016-06-17 06:43] LABS: GFR ESTIMATE (CALCULATED) 14 mL/min/; POTASSIUM 4.3 MEQ/L (3.7-5.4)
[2016-06-17 08:22] LABS: PLAT.SUFFICIENCY DECREASED; PLATELET COUNT UNABLE TO REPORT K/uL (156-360)
[2016-06-17 12:48] LABS: POINT-OF-CARE METER ID UU13113748
[2016-06-17 17:45] LABS: POINT-OF-CARE METER ID UU13113748
[2016-06-18] VITALS: BP 65/30
[2016-06-18 01:01] LABS: POINT-OF-CARE METER ID UU13113748
[2016-06-18 02:00] VITALS: BP 69/35
[2016-06-18 04:00] VITALS: BP 72/34
[2016-06-18 06:46] LABS: ANION GAP 23 MEQ/L (2-14); CHLORIDE 96 MEQ/L (99-109); SAMPLE HEMOLYSIS CHECK 0; SAMPLE ICTERIC CHECK 1; SAMPLE LIPEMIA CHECK 0; SODIUM 134 MEQ/L (136-147)
[2016-06-18 06:49] LABS: GLUCOSE 43 mg/dL (70-99)
[2016-06-18 06:50] LABS: GFR ESTIMATE (CALCULATED) 10 mL/min/; MAGNESIUM 2.8 mg/dl (1.3-2.7); POTASSIUM 6.7 MEQ/L (3.7-5.4); UREA NITROGEN (BUN) 114 mg/dL (9-23)
[2016-06-18 07:01] LABS: EOSINOPHIL (%) 0.1 % (0-5); IMMATURE GRANULOCYTE (%) 1.7 % (0.0-0.7); IMMATURE GRANULOCYTE COUNT 0.3 K/uL; LYMPHOCYTE COUNT 1.3 K/uL (1.0-2.8); MONOCYTE (%) 8.4 % (3-12); MONOCYTE COUNT 1.3 K/uL (0-0.8); NEUTROPHIL COUNT 12.5 K/uL (1.8-6.4); NRBC (%) 0.6 /100 WBC (0-0)
[2016-06-18 07:12] LABS: ABS NEUTROPHIL COUNT 13.58; ANISOCYTOSIS 2+; HEMATOCRIT 22.3 % (36.0-46.0); MACROCYTES 2+; MCH 27.7 PG (29.0-34.0); MEAN PLAT.VOLUME 12.9 uM^3 (9.5-12.4); MICROCYTOSIS OCC; PLAT.SUFFICIENCY DECREASED; POLYCHROMASIA 1+; RBC DIS.WIDTH-CV 20.3 % (11.8-14.6); RBC DIS.WIDTH-SD 67.2 % (39-53); RED BLOOD COUNT 2.42 M/uL (3.80-5.20); SPHEROCYTES OCC; USER ID BLP; WHITE BLOOD COUNT 15.4 K/uL (4.1-10.2)
[2016-06-18 07:13] LABS: MCV 92.6 FL (83-99); PLATELET COUNT 106 K/uL (156-360)
== END 2016-06-18 08:10 | DRG 981 ==
LOC: EME → EDBD 07:17 → EDOF 10:25 → 4WEST 10:25
PROVIDERS: Anesthesiology; Emergency Medicine; Family Medicine; Internal Medicine; Internal Medicine Critical Care Medicine; Internal Medicine Nephrology; Internal Medicine Pulmonary Disease; Specialist; Surgery
PROC: 5A1955Z Respiratory Ventilation, Greater than 96 Consecutive Hours (ICD-10-PCS; principal; 2016-06-01)
PROC: 0BH17EZ Insertion of Endotracheal Airway into Trachea, Via Natural or Artificial Opening (ICD-10-PCS; principal; 2016-06-01)
PROC: 03HB3DZ Insertion of Intraluminal Device into Right Radial Artery, Percutaneous Approach (ICD-10-PCS; 2016-06-01)
PROC: 02HV33Z Insertion of Infusion Device into Superior Vena Cava, Percutaneous Approach (ICD-10-PCS; 2016-06-01)
PROC: 06HN33Z Insertion of Infusion Device into Left Femoral Vein, Percutaneous Approach (ICD-10-PCS; 2016-06-03)
PROC: 5A1D00Z (ICD-10-PCS; 2016-06-03)
PROC: 02HV33Z Insertion of Infusion Device into Superior Vena Cava, Percutaneous Approach (ICD-10-PCS; 2016-06-04)
PROC: 5A1D60Z (ICD-10-PCS; 2016-06-07)
DX: J96.02 Acute respiratory failure with hypercapnia (principal); J44.0 Chronic obstructive pulmonary disease with (acute) lower respiratory infection; J18.9 Pneumonia, unspecified organism; A41.9 Sepsis, unspecified organism; R65.21 Severe sepsis with septic shock; N17.0 Acute kidney failure with tubular necrosis; J44.1 Chronic obstructive pulmonary disease with (acute) exacerbation; G93.1 Anoxic brain damage, not elsewhere classified; E66.2 Morbid (severe) obesity with alveolar hypoventilation; Z68.45 Body mass index [BMI] 70 or greater, adult; K92.2 Gastrointestinal hemorrhage, unspecified; E87.2 Acidosis; E87.1 Hypo-osmolality and hyponatremia; E87.5 Hyperkalemia; E83.51 Hypocalcemia; R34 Anuria and oliguria; E87.79 Other fluid overload; K72.90 Hepatic failure, unspecified without coma; E83.39 Other disorders of phosphorus metabolism; I27.2 Other secondary pulmonary hypertension; D69.6 Thrombocytopenia, unspecified; E11.9 Type 2 diabetes mellitus without complications; E55.9 Vitamin D deficiency, unspecified; I87.8 Other specified disorders of veins; Z66 Do not resuscitate; Z51.5 Encounter for palliative care; Z99.81 Dependence on supplemental oxygen; S31.119A Laceration without foreign body of abdominal wall, unspecified quadrant without penetration into peritoneal cavity, initial encounter; S31.010A Laceration without foreign body of lower back and pelvis without penetration into retroperitoneum, initial encounter; S71.112A Laceration without foreign body, left thigh, initial encounter; L30.4 Erythema intertrigo
CPT/HCPCS: 36600; 71010; 71020; 76770; 80048; 80048 91; 80069; 80076; 80202; 81003; 82306; 82330; 82436; 82570; 82803; 82948; 83520 90; 83605; 83735; 83880; 84100; 84133; 84156; 84300; 84478; 84484; 84540; 84999; 85014; 85018; 85025; 85025 91; 85027; 85378; 85384; 85610; 85730; 86706; 87040; 87070; 87077; 87086; 87147; 87186; 87205; 87340; 87493; 87502; 87641; 93005; 94002; 94003; 94640; 94640 76; 94760; 94799; 99202; 99281; 99285; C1752; C1788; C9113; J0456; J0610; J0692; J1250; J1644; J1815; J1940; J2060; J2250; J2270; J2543; J2597; J2704; J2765; J2920; J2930; J3010; J3370; J7030; J7040; J7050; J7070; J7608; S0028